=== PATIENT | male | born 1950 | race Caucasian/White ===

== ENCOUNTER 2025-06-10 08:03 | Outpatient (CLI) | payer OTHER, SELFPAY ==
[2025-06-10 08:14] VITALS: BP 129/68; PULSE 65; RESP 16; TEMP 36.6; O2SAT 97; BMI 24.4
--- NOTE | 2025-06-10 09:12 | P.ANES_ITS ---
Anesthesia Charges Start Date/Time Anesthesia Start Date: 06/10/25 Anesthesia Start Time: 09:20 Stop Date/Time Anesthesia Stop Date: 06/10/25 Anesthesia Stop Time: 09:40 Summary Extremes of Age - Over 70 or under 1: MDA Coding CPT Codes CPT Codes: ANESTH BONE ASPIRATE/BX - 05427 ([id number]) P2 - PATIENT W/MILD SYST DISEASE, QK - SCRIPT GIRL 2-4 CNCRNT ANES PROC, QX - SALESPERSON AUTOMOBILES SVC W/ MD MED DIRECTION Additional Codes: Summary - Extremes of Age - Over 70 or under 1: MDA ([id number])
--- NOTE | 2025-06-10 09:12 | W.ANESCHARGE ---
Anesthesia Charges Start Date/Time Anesthesia Start Date: 06/10/25 Anesthesia Start Time: 09:20 Stop Date/Time Anesthesia Stop Date: 06/10/25 Anesthesia Stop Time: 09:40 Summary Extremes of Age - Over 70 or under 1: MDA Coding CPT Codes CPT Codes: ANESTH BONE ASPIRATE/BX - 03966 ([id number]) P2 - PATIENT W/MILD SYST DISEASE, QK - CATERING OPERATIONS MANAGER 2-4 CNCRNT ANES PROC, QX - CITY ADMINISTRATOR SVC W/ MD MED DIRECTION Additional Codes: Summary - Extremes of Age - Over 70 or under 1: MDA ([id number])
[2025-06-10 09:34] VITALS: BP 121/68; PULSE 67; RESP 19; O2SAT 100
[2025-06-10 09:42] VITALS: BP 109/63; PULSE 66; RESP 16; O2SAT 95
--- NOTE | 2025-06-10 09:43 | P.ANES_ITS ---
Anesthesia Charges Start Date/Time Anesthesia Start Date: 06/10/25 Anesthesia Start Time: 09:20 Stop Date/Time Anesthesia Stop Date: 06/10/25 Anesthesia Stop Time: 09:40 Summary Extremes of Age - Over 70 or under 1: PROPERTY CONDITION ASSESSOR Coding CPT Codes CPT Codes: ANESTH BONE ASPIRATE/BX - 18690 ([id number]) P2 - PATIENT W/MILD SYST DISEASE, QK - SEVERITY OF ILLNESS COORDINATOR 2-4 CNCRNT ANES PROC, QX - PROPERTY CONDITION ASSESSOR SVC W/ MD MED DIRECTION Additional Codes: Summary - Extremes of Age - Over 70 or under 1: PROPERTY CONDITION ASSESSOR ([id number])
--- NOTE | 2025-06-10 09:43 | W.ANESCHARGE ---
Anesthesia Charges Start Date/Time Anesthesia Start Date: 06/10/25 Anesthesia Start Time: 09:20 Stop Date/Time Anesthesia Stop Date: 06/10/25 Anesthesia Stop Time: 09:40 Summary Extremes of Age - Over 70 or under 1: PROPERTY TECHNICIAN Coding CPT Codes CPT Codes: ANESTH BONE ASPIRATE/BX - 10616 ([id number]) P2 - PATIENT W/MILD SYST DISEASE, QK - RETURNS PROCESSOR 2-4 CNCRNT ANES PROC, QX - PROPERTY TECHNICIAN SVC W/ MD MED DIRECTION Additional Codes: Summary - Extremes of Age - Over 70 or under 1: PROPERTY TECHNICIAN ([id number])
[2025-06-10 09:51] VITALS: BP 145/70; PULSE 65; RESP 16; O2SAT 98
[2025-06-10 09:53] LABS: Hematocrit* 33.5 % (37.0-53.0); Hemoglobin* 10.9 gm/dL (13.5-17.5); Immature Granulocytes Abs Auto 0.11 K/uL (0.00-0.30); Immature Granulocytes Pct Auto 1.4 %; Immature Reticulocyte Fraction 17.4 % (2.3-13.4); Mean Corpuscular HGB Conc 33 gm/dL (32-36); Mean Corpuscular Hemoglobin 34 pg (26-34); Mean Corpuscular Volume 105 fL (80-100); RDW Coefficient of Variation % 14.3 % (11.5-15.5); Red Blood Count* 3.20 m/uL (4.30-5.90); Reticulocyte Hemoglobin Equivi 36.0 pg (29.0-35.0); Reticulocytes Absolute 0.05 # (0.03-0.08); White Blood Count* 7.77 K/uL (4.50-11.00)
[2025-06-10 10:02] LABS: Lymphocytes Absolute Auto 1.50 K/uL (0.90-2.90); Slide Review Reflex No
[2025-06-10 10:05] VITALS: BP 132/63; PULSE 63; RESP 16; O2SAT 97
== END 2025-06-10 10:12 | disposition home or self-care (01) ==
PROVIDERS: Visit Provider Internal Medicine Hematology & Oncology
DX: D47.1 Chronic myeloproliferative disease (principal); D75.839 Thrombocytosis, unspecified
CPT/HCPCS: 01112; 36415; 38222; 85025; 85045; 88237; 88264; 88305; 88311; 88313; 88360; 99100; J1644; J2003; J2704